=== PATIENT | male | born 2000 | race Two or more races ===

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

== ENCOUNTER 2021-02-10 11:57 | Emergency (ER) | payer MEDICAID ==
[~2021-02-10] VITALS: Ht 177.8 cm; Wt 74.8 kg
[2021-02-10 12:30] VITALS: BP 138/65
--- NOTE | 2021-02-10 12:36 | NUR ---
yann park assessing pt in triage. pt returned to lobby at this time
[2021-02-10] MEDS ORDERED: IBUP-2213 PO (13:05)
[2021-02-10 13:16] VITALS: BP 138/65
--- NOTE | 2021-02-10 13:17 | NUR ---
Patient discharged with v/s stable. Written and verbal after care instructions given and explained. Patient alert, oriented and verbalized understanding of instructions. Ambulatory with steady gait. All questions addressed prior to discharge. ID band removed. Patient advised to follow up with PMD. Rx of ibuprofen (sent) given. Patient educated on indication of medication including possible reaction and side effects. Opportunity to ask questions provided and answered.
--- NOTE | 2021-02-10 13:19 | NUR ---
cd 2 rn signed and given to pt
== END 2021-02-10 12:32 | disposition home or self-care (01) ==
LOC: MED 11:57
DX: S93.402A Sprain of unspecified ligament of left ankle, initial encounter (principal); X58.XXXA Exposure to other specified factors, initial encounter; Y93.67 Activity, basketball; Y92.89 Other specified places as the place of occurrence of the external cause; Y99.8 Other external cause status
CPT/HCPCS: 73610; 99283

== ENCOUNTER 2022-02-17 20:10 | Emergency (ER) | payer MEDICAID, OTHER ==
[~2022-02-17] VITALS: Ht 177.8 cm; Wt 73.5 kg
[~2022-02-17 20:10] MED LIST: IBUP-2213 PO
[2022-02-17 20:35] VITALS: BP 113/55
--- NOTE | 2022-02-17 20:42 | NUR ---
Dr. Segura examining patient.
[2022-02-17] MEDS ORDERED: CYCL-711 PO (20:47)
[2022-02-17] MEDS ORDERED: NAPR-54 PO (20:47)
[2022-02-17 20:55] VITALS: BP 113/55
--- NOTE | 2022-02-17 20:55 | NUR ---
Patient discharged with v/s stable. Written and verbal after care instructions given and explained. Patient alert, oriented and verbalized understanding of instructions. Ambulatory with steady gait. All questions addressed prior to discharge. ID band removed. Patient advised to follow up with PMD. Rx of Flexeril and Naproxen given. Patient educated on indication of medication including possible reaction and side effects. Opportunity to ask questions provided and answered.
== END 2022-02-17 20:55 | disposition home or self-care (01) ==
LOC: MED 20:10
DX: S86.811A Strain of other muscle(s) and tendon(s) at lower leg level, right leg, initial encounter (principal); Z79.899 Other long term (current) drug therapy; X58.XXXA Exposure to other specified factors, initial encounter; Y93.89 Activity, other specified; Y92.89 Other specified places as the place of occurrence of the external cause; Y99.8 Other external cause status
CPT/HCPCS: 99283